=== PATIENT | male | born 1985 | race African-American/Black ===

== ENCOUNTER 2019-02-26 11:03 | Emergency (ER) | payer MEDICAID ==
--- NOTE | 2019-02-26 13:16 | ED Physician Documentation ---
PD HPI HEADACHE - Stated complaint Stated Complaint: MIGRAINE/DIZZY - Chief complaint Chief Complaint: Heent - History obtained from History obtained from: Patient - History of Present Illness Timing - onset: How many days ago (11) Timing - onset during: Rest Timing - duration: Days (11) Timing - details: Gradual onset Severity Comments: mild to moderate Location: Other (Right anterior lateral and submandibular neck pain, reports he feels a lump there) Quality: Aching, Other (mild to moderate headache, pressure) Associated symptoms: Other (R ear pain) Improved by: Nothing Worsened by: Other (nothing) Contributing factors: Other (none) Similar symptoms before: Has not had sx before Recently seen: Not recently seen - Treatment prior to arrival Treatment prior to arrival: none - Additional information Additional information: Pt states mainly his R ear hurts, he has congestion and he feels like theres a lump in his neck Review of Systems Ten Systems: 10 systems reviewed and negative Constitutional: reports: Reviewed and negative Ears: reports: Ear pain Nose: reports: Congestion Throat: reports: Reviewed and negative Cardiac: reports: Reviewed and negative Respiratory: reports: Reviewed and negative GI: reports: Reviewed and negative Skin: reports: Reviewed and negative Musculoskeletal: reports: Reviewed and negative Neurologic: reports: Headache Immunocompromised: reports: Reviewed and negative PD PAST MEDICAL HISTORY - Allergies Allergies/Adverse Reactions: Allergies Allergy/AdvReac Type Severity Reaction Status Date / Time No Known Drug Allergies Allergy Verified 02/26/19 11:21 PD ED PE NORMAL - Vitals Vital signs reviewed: Yes - General General: Alert and oriented X 3, No acute distress, Well developed/nourished - HEENT HEENT: Atraumatic, PERRL, EOMI, Ears normal, Moist mucous membranes, Pharynx benign, Dentition benign - Neck Neck: Supple, no meningeal sign, No adenopathy, Thyroid normal, No JVD - Cardiac Cardiac: RRR, No murmur, No gallop, No rub - Respiratory Respiratory: No respiratory distress, Clear bilaterally - Abdomen Abdomen: Soft, Non tender, Non distended - Male Male : Deferred - Rectal Rectal: Deferred - Derm Derm: Normal color, Warm and dry, No rash - Extremities Extremities: No deformity, No edema - Neuro Neuro: Alert and oriented X 3, 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, No motor deficit, No sensory deficit, Normal speech Eye Opening: Spontaneous Motor: Obeys Commands Verbal: Oriented GCS Score: 15 - Psych Psych: Normal mood, Normal affect PD ED PE EXPANDED - General General: Alert, No acute distress, Well developed/nourished - HEENT HEENT: Ears normal, Pharynx normal, Dentition normal Results - Vitals Vitals: Oxygen O2 Source Room air PD MEDICAL DECISION MAKING - ED course Complexity details: re-evaluated patient, considered differential, d/w patient ED course: ddx- URI, sialoadenitis, sinusitis, flu, sinus headache, tension headache 33 y/o M with hx and exam as documented, ear normal, most consistent with a URI or sinus headache, he does report some discomfort in the submandibular area of his neck, has no significant swelling, his airway is intact, he is not drooling and has no trismus. Suspect he may have sialoadenitis advised pt to try sialologues and supportive care. pt given return precautions if worsening or new concerning symptoms. Departure - Departure Disposition: 01 Home, Self Care Clinical Impression: Sore throat Headache Qualifiers: Headache type: unspecified Headache chronicity pattern: acute headache Intractability: not intractable Qualified Code(s): R51 - Headache Condition: Stable Record reviewed to determine appropriate education?: Yes Instructions: ED Headache Migraine, ED Sublingual Gland Obstruction Follow-Up: your, doctor [Other] Comments: Your neurological and physical examination is overall normal. You may have a small salivary duct stone in your submandibular gland causing your symptoms. You can try sour candies to help milk a potential duct from the stone. If your symptoms persist follow up with your regular doctor. Take ibuprofen and tylenol as needed for pain or headache. If you develop a fever, drooling, or worsening symptoms return to the ED. Discharge Date/Time: 02/26/19 13:21
[2019-02-26 13:22] VITALS: BP 136/76
== END 2019-02-26 13:21 | disposition home or self-care (01) ==
LOC: ED 11:03
DX: J02.9 Acute pharyngitis, unspecified (principal); R51 Headache
CPT/HCPCS: 99282

== ENCOUNTER 2019-03-26 08:00 | Outpatient (CLI) | payer MEDICAID ==
[2019-03-26 13:01] LABS: BASOPHILS % (AUTO) 0.7 %; EOSINOPHILS # (AUTO) 0.2 10^3/uL (0.0-0.7); EOSINOPHILS % (AUTO) 3.8 %; HGB - HEMOGLOBIN 14.5 g/dL (14.0-18.0); LYMPHOCYTES # (AUTO) 2.4 10^3/uL (1.5-3.5); LYMPHOCYTES % (AUTO) 42.2 %; MEAN CORPUSCULAR HEMOGLOBIN 27.1 pg (27.0-31.0); MEAN CORPUSCULAR HGB CONC 31.9 g/dL (32.0-36.0); MEAN CORPUSCULAR VOLUME 84.7 fL (80.0-94.0); MEAN PLATELET VOLUME 10.5 fL (7.4-11.4); MONOCYTES # (AUTO) 0.5 10^3/uL (0.0-1.0); MONOCYTES % (AUTO) 8.3 %; NEUTROPHILS # (AUTO) 2.5 10^3/uL (1.5-6.6); NEUTROPHILS % (AUTO) 44.8 %; PLT - PLATELET COUNT 256 10^3/uL (130-450); RED BLOOD COUNT 5.36 10^6/uL (4.70-6.10); RED CELL DISTRIBUTION WIDTH 14.2 % (12.0-15.0); WHITE BLOOD COUNT 5.6 x10^3/uL (4.8-10.8)
[2019-03-26 13:20] LABS: ALBUMIN 4.1 g/dL (3.2-5.5); ALBUMIN/GLOBULIN RATIO 1.2 (1.0-2.2); ALKALINE PHOSPHATASE 94 IU/L (42-121); ALT ALANINE AMINOTRANSFERASE 23 IU/L (10-60); AST ASPARTATE AMINOTRANSFERASE 20 IU/L (10-42); BILIRUBIN,TOTAL 0.6 mg/dL (0.2-1.0); BUN - BLOOD UREA NITROGEN 12 mg/dL (6-20); CALCIUM 9.4 mg/dL (8.5-10.3); CARBON DIOXIDE - CO2 28 mmol/L (21-32); CHLORIDE 104 mmol/L (101-111); CHOL/HDL RATIO 3.5 (<5.0); CHOLESTEROL 239 mg/dL; CREATININE 0.9 mg/dL (0.6-1.2); GFR - MDRD 119 (>89); GLUCOSE 93 mg/dL (70-100); HDL CHOLESTEROL 68 mg/dL; LDL CHOLESTEROL,CALCULATED 152 mg/dL; LDL/HDL RATIO 2.2 (<3.6); SODIUM 138 mmol/L (135-145); TOTAL PROTEIN 7.6 g/dL (6.7-8.2); VLDL CHOLESTEROL 19 mg/dL
[2019-03-26 13:27] LABS: HB2 TOTAL 14.5 g/dL; HEMOGLOBIN A1C 0.56 g/dL; HEMOGLOBIN A1C % 5.7 % (4.6-6.2)
== END 2019-03-26 23:59 | disposition home or self-care (01) ==
LOC: LAB.WCP 08:00
PROVIDERS: ATTEND Nurse Practitioner Family
DX: Z00.00 Encounter for general adult medical examination without abnormal findings (principal)
CPT/HCPCS: 36415; 80053; 80061; 83036; 83721; 84443; 85025

== ENCOUNTER 2023-09-04 07:09 | Emergency (ER) | payer SELFPAY ==
[2023-09-04 07:27] VITALS: O2SAT 100
--- NOTE | 2023-09-04 08:11 | ED Physician Documentation ---
History of Present Illness - Stated complaint Stated Complaint: JAW PX/SWELLING,LIP SPASM - Chief complaint Chief Complaint: Heent - History obtained from History obtained from: Patient - History of Present Illness Pain level max: 7 Pain level now: 7 - Additonal information Additional information: Patient is a 37-year-old male who presents with diffuse dental decay and dental pain. He states has been ongoing for several years gets infected every few months, has to go on antibiotics. He states he does not have the money to see a dentist. No fevers. No chills. No facial swelling. Review of Systems Constitutional: denies: Fever, Chills GI: denies: Vomiting PD PAST MEDICAL HISTORY - Past Medical History Past Medical History: No - Past Surgical History Past Surgical History: No - Present Medications Home Medications: Ambulatory Orders Medication Instructions Recorded Confirmed Amox/Clav 875/125 [Augmentin] 1 tab PO Q12H #20 tablet 09/04/23 HYDROcod/ACETAM 5/325 [[place] 5/325] 1 - 2 ea PO Q6H PRN #14 tablet 09/04/23 - Allergies Allergies/Adverse Reactions: Allergies Allergy/AdvReac Type Severity Reaction Status Date / Time Sulfa (Sulfonamide Allergy Hives Verified 09/04/23 07:25 Antibiotics) - Social History Does the pt smoke?: No Smoking Status: Former smoker Does the pt drink ETOH?: No - Immunizations Immunizations are current?: Yes - POLST Patient has POLST: No PD ED PE NORMAL - Vitals Vital signs reviewed: Yes - General General: Alert and oriented X 3, No acute distress - HEENT HEENT: Moist mucous membranes, Other (Diffusely poor dentition throughout, multiple exposed tendon areas. No gingival swelling or abscess. No facial swelling. Normal phonation. No trismus.) - Neck Neck: Supple, no meningeal sign, No adenopathy - Cardiac Cardiac: RRR - Respiratory Respiratory: No respiratory distress, Clear bilaterally - Derm Derm: Warm and dry - Neuro Neuro: Alert and oriented X 3 Results - Vitals Vitals: Vital Signs - 24 hr 09/04/23 09/04/23 07:21 08:41 Temperature 36.4 C L Heart Rate 76 82 Respiratory 20 18 Rate Blood Pressure 181/110 H 160/92 H O2 Saturation 100 100 Oxygen O2 Source Room air PD Medical Decision Making - ED course Complexity details: reviewed results, re-evaluated patient, considered differential, d/w patient ED course: Patient with what appears to be pain secondary to dental caries. He is driving himself today, therefore will prescribe pain medication for home. Will start him on antibiotics as well. Informed the patient that he severely needs dental care and needs to follow-up as closely as he can with a dentist. He should return for any difficulty speaking or swallowing. Also any difficulty breat jasvir. No facial swelling at this time. No trismus. Patient counseled regarding signs and symptoms for which I believe and urgent re-evaluation would be necessary. Patient with good understanding of and agreement to plan and is comfortable going home at this time This document was made in part using voice recognition software. While efforts are made to proofread this document, sound alike and grammatical errors may occur. Departure - Departure Disposition: 01 Home, Self Care Clinical Impression: Pain due to dental caries Condition: Good Instructions: ED Tooth Pain Follow-Up: your,dentist this week [Other] Prescriptions: Amox/Clav 875/125 [Augmentin] 1 tab PO Q12H #20 tablet HYDROcod/ACETAM 5/325 [[place] 5/325] 1 - 2 ea PO Q6H PRN #14 tablet PRN Reason: Pain Comments: Please follow-up with your dentist for further care. You [place] amrik dental work that could help you with your tooth extraction. Please take all antibiotics until gone. Please return if you worsen. Your prescriptions were sent to [facility] in [place]. I am prescribing a short course of narcotic pain medication for you. These are potentially dangerous and addictive medications that should be used carefully. These medications may constipate you. Take an [id number] stool softener (docusate) twice daily with plenty of water while taking these medications. If you go 24 hours without a bowel movement, take [id number] miralax, per package instructions. Do not drink or drive while taking these medications. If you received narcotic or sedating medications while in the emergency department, do not drive for 24 hours. Store this medication in a safe, secure place and out of reach of children. It is a violation of federal law to give or sell this medication to another person or to use in a manner other than prescribed. The ED will not refill narcotic prescriptions, including prescriptions lost or stolen. To dispose of unwanted medications: 1. [facility] at [address] in [place] has a medication drop box. They accept prescription medications (in pill form) Monday through Monday 9:00 a.m. to 5:00 p.m. 2. The [facility] accepts prescription medications (in pill form only) for disposal year round. Call for more information. 3. Contact the [facility] for the next [facility] sponsored prescription drug collection event. , [phone], or [phone]; Forms: PCP List Discharge Date/Time: 09/04/23 08:41
[2023-09-04] MEDS: AMOX/CLAV 875 MG/125 MG TABLET PO STA (08:13)
[2023-09-04 08:47] VITALS: BP 160/92
== END 2023-09-04 08:41 | disposition home or self-care (01) ==
LOC: ED 07:09
DX: K04.7 Periapical abscess without sinus (principal); K08.89 Other specified disorders of teeth and supporting structures
CPT/HCPCS: 99283; 99284; A9270